=== PATIENT | male | born 1970 | race Caucasian/White ===

== ENCOUNTER → 2020-12-12 | Day surgery (SDC) | payer MEDICARE, OTHER ==
[~2020-12-12] MED LIST: ALLEGRA-D 24 H1 EACH PO; AMLODIPINE BESYL5 MG PO; BUSPAR 10MG10 MG PO; CRESTOR10 MG PO; CYMBALTA60 MG PO; FOOT CREAM TOP; GABAPENTIN800 MG PO; MELATONIN1 MG PO; OXYCODONE HCL10 MG PO; TRAZODONE HCL100 MG PO; VITAMIN C100 MG PO; VITAMIN D 40400 UNIT PO; ZANAFLEX 4 MG TA4 MG PO
[2020-12-12 07:27] LABS: BUN/CREATININE RATIO 8 (0-10)
== END | disposition home or self-care (01) ==
LOC: OR 05:55
PROVIDERS: Orthopaedic Surgery
PROC: 0RC Upper Joints, Extirpation (ICD-10-PCS; principal; 2020-12-12 09:05)
DX: Z48.02 Encounter for removal of sutures (principal); I10 Essential (primary) hypertension; E78.5 Hyperlipidemia, unspecified; E11.9 Type 2 diabetes mellitus without complications; F11.20 Opioid dependence, uncomplicated; E66.01 Morbid (severe) obesity due to excess calories; Z98.890 Other specified postprocedural states; Z88.8 Allergy status to other drugs, medicaments and biological substances; Z79.899 Other long term (current) drug therapy; Z20.822 Contact with and (suspected) exposure to COVID-19
CPT/HCPCS: 36415; 71045; 80048; 82962; 83036; 93005; J0690; J1100; J2001; J2250; J2405; J2704; J3010; J3370; J7030; J7120; U0002